=== PATIENT | male | born 1945 | race Caucasian/White ===

== ENCOUNTER → 2018-04-28 14:17 | Outpatient (CLI) | payer MEDICARE, BC ==
[2013-12-30 14:09] VITALS: BMI 29.2
[~2018-04-28 14:17] MED LIST: AQUASOL E50 UNIT/ML; ASPIRIN EC81 MG PO; METFORMIN HCL500 M1 PO; MULTI-DAY VITAM1 TAB; OMEGA-3100 MG; TOPROL XL25 MG PO; TRICOR145 MG PO; VITAMIN C250 MG; ZOCOR40 MG PO; [UNRECOGNIZED DRUG - OTHER]
== END | disposition home or self-care (01) ==
LOC: D.MRI 14:17
DX: M54.5 Low back pain (principal)